=== PATIENT | female | born 1950 ===

== ENCOUNTER 2018-02-15 09:44 | Emergency (ER) | payer OTHER ==
[~2018-02-15] VITALS: Ht 157.5 cm; Wt 72.6 kg
[2018-02-15] MEDS ORDERED: COZAAR100 MG PO (10:15)
[2018-02-15] MEDS ORDERED: GLIPIZIDE-METF1 EAC1 PO (10:16)
[2018-02-15] MEDS ORDERED: GLIPIZIDE10 MG PO (10:16)
[2018-02-15] MEDS ORDERED: MEDROLPACK PO (12:30)
[2018-02-15] MEDS ORDERED: NORFLEX100MG PO (12:30)
[2018-02-15] MEDS ORDERED: KETO10TA2 PO (12:30)
== END 2018-02-15 12:37 | disposition home or self-care (01) ==
LOC: ER 09:44
DX: M54.5 Low back pain (principal)